=== PATIENT | male | born 1980 | race Caucasian/White ===

== ENCOUNTER 2017-12-13 10:31 | Inpatient (IN) | payer OTHER ==
[~2017-12-13] VITALS: Ht 170.2 cm; Wt 78.1 kg
--- NOTE | 2017-12-13 11:22 | PD ---
Physical Exam Date Seen by Provider: December 13, 2017 Time Seen by Provider: 11:19 Narrative 37-year-old male previously seen at [facility], and medically cleared for psychiatric evaluation under the [place] act. He is seen in the room complaining of rash which is not apparent on exam. He has no other medical complaints. He is felt to be psychotic. He is a poor historian. He has no known drug allergies Data Data Orders Orders Diet Regular Basic (12/13/17 Lunch) [facility] Medical Record Reviewed: Yes Supervised Visit with ANAHI: Yes Narrative Course Patient is previously been medically screened for psychiatric evaluation. Patient transferred from [place] for psychiatric evaluation. No further testing is warranted. Patient is medically cleared for psychiatric evaluation Psych screen is ordered Condition: Stable Rosalio Carpenter December 13, 2017 11:22
[2017-12-13] MEDS ORDERED: ALUMINUM/MAGNESIUM/SIMETH 30 ML CUP PO PRN (13:30)
[2017-12-13] MEDS ORDERED: LORazepam 1 MG TAB PO PRN (13:30)
[2017-12-13] MEDS ORDERED: ACETAMINOPHEN 325 MG TAB PO PRN (13:30)
[2017-12-13] MEDS ORDERED: LORazepam 0.5 MG TAB PO PRN (13:30)
[2017-12-13] MEDS ORDERED: LORazepam 2 MG/ML VIAL IM PRN ×2 (13:30)
[2017-12-13] MEDS ORDERED: MAGNESIUM HYDROXIDE SUSP 30 ML CUP PO PRN (13:30)
--- NOTE | 2017-12-13 13:45 | HHI.HP ---
Provisional Diagnosis Admission Date [place] I. Unspecified psychosis, history of depression [place] II. Deferred [place] III. No significant medical history [place] IV. Poor social and family support [place] V. 40 Certification of Person's Competence To Provide Express and Informed Consent I have personally examined Anselmo Phillips , a person being served at [facility] [place] on, December 13, 2017 13:20. Express and informed consent means consent voluntarily given in writing, by a competent person, after sufficient explanation and disclosure of the subject matter involved to enable the person to make a knowing and willful decision without any element of force, fraud, deceit, duress, or other form of constraint or coercion. This person is 18 years of age or older, is not now known to be incompetent to consent to treatment with a guardian advocate, and does not have a health care surrogate or proxy currently making medical treatment decisions. I have found this person to be one of the following: [] Competent to provide express and informed consent, as defined above, for voluntary admission to this facility and is competent to provide express and informed consent for treatment. He/she has the consistent capacity to make well reasoned, willful, and knowing decisions concerning his or her medical or mental health treatment. The person fully and consistently understands the purpose of the admission for examination/placement and is fully capable of personally exercising all rights assured under [place] Incompetent to provide express and informed consent to voluntary admission, and this is incompetent to provide express and informed consent to treatment. The person must be transferred to involuntary status and a petition for a guardian advocate filed with the Circuit Court. [x] Refusing to provide express and informed consent to voluntary admission but is competent to provide express and informed consent for treatment. The person must be discharged or transferred to involuntary status. Form shall be completed within 24 hours of a person's arrival at the receiving facility and filed in the clinical record of each person: 1. Admitted on a voluntary basis 2. Permitted to provide express and informed consent to his/her own treatment 3. Allowed to transfer from involuntary to voluntary status 4. Prior to permitting a person to consent to his or her own treatment after having been previously found incompetent to consent to treatment. 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 Faxed medical record from [facility] reviewed. On psychiatric evaluation the patient is calm, cooperative. The patient reports that the reason he came for medical health in [facility] was because he was having "a lot of skin protuberances". As the patient is telling me his he started showing me the protuberant lesions in his hands, but his skin is fairly normal. He also states that he has several lesions of other nature in his body. For example, he says that his anus is changing in color, and as he is saying this he exposed himself to show his supposed discoloration. He also complained of rash and pruritus. He says that the reason he is having this problem is because "those people" in detention were putting poison in his food and water. 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 He says that the people from detention that are following him are "the sons of detention" and they are also watching him in the street, recording his movement with cameras, "and their plan is to kill me, but I am going to kill me before they find me". The patient seems to be quite distressed, but no agitated or aggressive. He reports upset mood due to his skin lesion and "people following me". He denies active suicidal ideation, denies suicidal plan, denies homicidal ideation, denies visual and auditory hallucinations. The patient is goal-directed, linear, but no major thought disorder is observed at this moment. No agitation, no aggressive behavior present. The patient is fully oriented 3, no filtration of consciousness, no attention deficit. He denies the use of alcohol and illegal drugs. Review of Systems Constitutional: DENIES: Diaphoretic episodes, Fatigue, Fever, Weight gain, Weight loss, Chills, Dizziness, Change in appetite, Night Sweats Endocrine: DENIES: Heat/cold intolerance, Polydipsia, Polyuria, Polyphagia Eyes: DENIES: Blurred vision, Diplopia, Eye inflammation, Eye pain, Vision loss , Photosensitivity, Double Vision Ears, nose, mouth, throat: DENIES: Tinnitus, Hearing loss, Vertigo, Nasal discharge, Oral lesions, Throat pain, Hoarseness, Ear Pain, Running Nose, Epistaxis, Sinus Pain, Toothache, Odynophagia Respiratory: DENIES: Apneas, Cough, Snoring, Wheezing, Hemoptysis, Sputum production, Shortness of breath Cardiovascular: DENIES: Chest pain, Palpitations, Syncope, Dyspnea on Exertion , PND, Lower Extremity Edema, Orthopnea, Claudication Gastrointestinal: DENIES: Abdominal pain, Black stools, Bloody stools, Constipation, Diarrhea, Nausea, Vomiting, Difficulty Swallowing, Anorexia Genitourinary: DENIES: Sexual dysfunction, Urinary frequency, Urinary incontinence, Urgency, Hematuria, Dysuria, Nocturia, Penile Discharge, Testicular Pain, Testicular Swelling Musculoskeletal: DENIES: Joint pain, Muscle aches, Stiffness, Joint Swelling, Back pain, Neck pain Integumentary: DENIES: Abnormal pigmentation, Nail changes, Pruritus, Rash Hematologic/lymphatic: DENIES: Bruising, Lymphadenopathy Immunologic/allergic: DENIES: Eczema, Urticaria Neurologic: DENIES: Abnormal gait, Headache, Localized weakness, Paresthesias, Seizures, Speech Problems, Tremor, Poor Balance Psychiatric: COMPLAINS OF: Mood changes, Depression, Suicidal Ideation, Delusions Past Psych History Violence risk - self (6 mos) Elevated Substance Abuse History Drugs/Alcohol past 12 months Patient denies the use of drugs or alcohol Past Family Social History Coded Allergies: No Known Allergies (Unverified , 12/13/17) Current Medications Medications (Trade) Dose Ordered Sig/Tiesha Route Start Time Stop Time Status Last Admin (Ativan) 1 mg Q6H PRN PO 12/13/17 13:30 UNV (Ativan Inj) 1 mg Q6H PRN IM 12/13/17 13:30 UNV (Ativan) 0.5 mg Q12H PRN PO 12/13/17 13:30 UNV (Ativan Inj) 0.5 mg Q12H PRN IM 12/13/17 13:30 UNV (Tylenol) 650 mg Q4H PRN PO 12/13/17 13:30 UNV (Milk Of Magnesia Liq) 30 ml DAILY PRN PO 12/13/17 13:30 UNV (Mag-Al Plus Susp Liq) 30 ml Q6H PRN PO 12/13/17 13:30 UNV (Habitrol 21 Mg Patch.24 Hr) 1 patch DAILY T-DERMAL 12/13/17 13:30 UNV Family Psych History Patient denies family psychiatric history Social History Patient was born and raised in [place], he lives in [place] in a hotel, recently released from detention, multiple incarcerations in the past, single, employed in construction Patient's Strengths (min. 2) Verbal communication Physical Exam No tremors, no EPS, no psychomotor retardation or agitation at the moment Mental Status Examination Appearance: Appropriate Consciousness: Alert Orientation: x4 Motor Activity: Normal gait Speech: Unremarkable Language: Adequate Fund of Knowledge: Adequate Attention and Concentration: Adequate Memory: Unremarkable Mood: Angry Affect: Irritable Thought Process & Associations: Goal directed, Linear Thought Content: Appropriate Hallucination Type: None Delusion Type: None, Bizarre, Paranoid, Somatic Suicidal Ideation: Yes Suicidal Plan: No Suicidal Intention: No Homicidal Ideation: No Homicidal Plan: No Homicidal Intention: No Insight: Poor Judgment: Poor Assessment & Plan Problem List: (1) Unspecified psychosis ICD Codes: F29 - Unspecified psychosis not due to a substance or known physiological condition Assessment & Plan: Psychiatric evaluation the patient presents cooperative, but irritable and quite upset. Patient has prominent somatic delusion, he thinks that he has deformation and protuberances in his skin, discoloration of his anus, pruritus and rash produced by poisoning of people in detention. He also has grandiose delusions thinking that he is a graduate civil engineer he can read "the mechanics of incarceration and poisoning", as well as persecutory delusions, and stating that "people from detention" are following him, recording him, and want to kill him. Due to these delusions the patient has a clear impairment in reality testing and as a result he also seems to be quite distressed, emotionally disturbed and anxious at the point that he has suicidal ideation to avoid "that they kill me". Patient's thought process seems to be quite linear and goal-directed, no disorganized or tangential. He denies perceptual disturbances such as visual and auditory hallucinations, but tactile hallucinations are possible. The patient is oriented 3, no gross cognitive impairment is present. Patient seems to have an elevated risk of danger to self and others due to level of psychosis. Patient reports a history of depression, but denies history of psychotic disorder in the past. The fact that the patient was released in Depakote 500 mg twice daily and Risperdal 1 mg twice daily from the recent hospitalization give me the idea that most probably the patient has been psychotic/manic, but he seems to have a very poor insight. I will restart this psychotropic regimen, Risperdal 1 mg twice daily, Depakote 500 mg twice daily. Will order Depakote levels. Patient will be transferred to [address] unit. Will consult psychiatry for second opinion. social worker health services intervention for psychosocial assessment, collateral information, individual and group therapies, also to coordinate safe discharge. Assessment & Plan Estimated LOS: Demetrius Akins MD December 13, 2017 13:45
[2017-12-13 14:20] VITALS: BP 102/58; PULSE 67; RESP 16; TEMP 97.1; O2SAT 100
[2017-12-13] MEDS: NICOTINE 21 MG/24 HR PATCH T-DERMAL SCH (15:00)
[2017-12-13] MEDS: risperiDONE 1 MG TAB PO SCH ×2 (15:04→20:25)
[2017-12-13] MEDS: DIVALPROEX SODIUM E.R. 500 MG TAB PO SCH (20:25)
[2017-12-13] MEDS: BENZTROPINE MESYLATE 1 MG TAB PO SCH (20:25)
[2017-12-13] MEDS: REMOVE OLD NICODERM (NICOTINE) PATCH T-DERMAL SCH (21:00)
[2017-12-14 05:58] VITALS: BP 91/52; PULSE 60; RESP 16; TEMP 97.9; O2SAT 100
[2017-12-14] MEDS: NICOTINE 21 MG/24 HR PATCH T-DERMAL SCH (09:00)
[2017-12-14 09:07] LABS: BICARBONATE 26.9 MEQ/L (21.0-32.0); BLOOD UREA NITROGEN 12 MG/DL (7-18); CALCIUM 8.6 MG/DL (8.5-10.1); CHLORIDE 104 MEQ/L (98-107); CREATININE 0.85 MG/DL (0.60-1.30); GLOMERULAR FILTRATION RATE 101 ML/MIN (>89); GLUCOSE,RANDOM 59 MG/DL (74-106); SODIUM (NA) 142 MEQ/L (136-145)
[2017-12-14 09:08] LABS: CHOLESTEROL 147 MG/DL (120-200); TRIGLYCERIDES 116 MG/DL (42-150)
[2017-12-14 09:10] LABS: CHOLESTEROL/ HDL RATIO 2.06 RATIO; HDL CHOLESTEROL 71.3 MG/DL (40.0-60.0); LDL CHOLESTEROL 53 MG/DL (0-99)
[2017-12-14] MEDS: DIVALPROEX SODIUM E.R. 500 MG TAB PO SCH ×2 (09:18→21:12)
[2017-12-14] MEDS: BENZTROPINE MESYLATE 1 MG TAB PO SCH ×2 (09:18→21:12)
[2017-12-14] MEDS: risperiDONE 1 MG TAB PO SCH ×2 (09:18→21:12)
--- NOTE | 2017-12-14 14:15 | PD.PSY.CON ---
Provisional Diagnosis Admission Date December 13, 2017 at 13:19 [place] I. Unspecified psychosis, history of depression [place] II. Deferred [place] III. No significant medical history [place] IV. Poor social and family support [place] V. 40 History of Present Illness Service Psychiatry Consult Requested By Dr. 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 Faxed medical record from [facility] reviewed. On psychiatric evaluation the patient is calm, cooperative. The patient reports that the reason he came for medical health in [facility] was because he was having "a lot of skin protuberances". As the patient is telling me his he started showing me the protuberant lesions in his hands, but his skin is fairly normal. He also states that he has several lesions of other nature in his body. For example, he says that his anus is changing in color, and as he is saying this he exposed himself to show his supposed discoloration. He also complained of rash and pruritus. He says that the reason he is having this problem is because "those people" in long term were putting poison in his food and water. 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 He says that the people from long term that are following him are "the sons of long term" and they are also watching him in the street, recording his movement with cameras, "and their plan is to kill me, but I am going to kill me before they find me". The patient seems to be quite distressed, but no agitated or aggressive. He reports upset mood due to his skin lesion and "people following me". He denies active suicidal ideation, denies suicidal plan, denies homicidal ideation, denies visual and auditory hallucinations. The patient is goal-directed, linear, but no major thought disorder is observed at this moment. No agitation, no aggressive behavior present. The patient is fully oriented 3, no filtration of consciousness, no attention deficit. He denies the use of alcohol and illegal drugs. 12/14/17 - Second opinion Patient is a 37-year-old Northern Irish man, single, employed, domiciled in [facility], with a past psychiatric history of depression, previous psychiatric admissions, no previous suicide attempt or self-injurious behavior, denies any history of substance use, no past medical history, previously incarcerated and currently endorsing having lesions in his hands and feet and his face related to belief that people in long term had poisoned his food and water which is because this. Patient also had endorsed having paranoid delusions of the same. Patient reports that he has been sleeping well, no problems with eating or drinking, no following bowel movement. Patient reports his mood has been "good" continues to endorse having auditory hallucinations but did not elaborate. Patient states that he has been having changes in his skin color for the past 2 days and had not noticed this prior this. Patient tolerated medications well, denying any suicide ideations. Past Family Social History Coded Allergies: No Known Allergies (Unverified , 12/13/17) Current Medications Medications (Trade) Dose Ordered Sig/Tiesha Route Start Time Stop Time Status Last Admin (Ativan) 1 mg Q6H PRN PO 12/13/17 13:30 (Ativan Inj) 1 mg Q6H PRN IM 12/13/17 13:30 (Tylenol) 650 mg Q4H PRN PO 12/13/17 13:30 (Milk Of Magnesia Liq) 30 ml DAILY PRN PO 12/13/17 13:30 (Mag-Al Plus Susp Liq) 30 ml Q6H PRN PO 12/13/17 13:30 (Habitrol 21 Mg Patch.24 Hr) 1 patch DAILY T-DERMAL 12/13/17 15:00 12/14/17 09:00 (Depakote Er) 500 mg BID PO 12/13/17 21:00 12/14/17 09:18 (risperDAL) 1 mg Q12HR PO 12/13/17 13:30 12/14/17 09:18 (Cogentin) 1 mg Q12HR PO 12/13/17 21:00 12/14/17 09:18 Miscellaneous Information 1 HS T-DERMAL 12/13/17 21:00 12/13/17 21:00 Patient's Strengths (min. 2) Verbal communication Physical Exam Vital Signs Vital Signs Date Time Temp Pulse Resp B/P (MAP) Pulse Ox O2 Delivery O2 Flow Rate FiO2 12/14/17 05:58 97.9 60 16 91/52 (65) 100 Lab Results Test 12/13/17 17:46 12/14/17 08:23 Valproic Acid (Depakene) Level LESS THAN 3 MCG/ML Blood Urea Nitrogen 12 MG/DL Creatinine 0.85 MG/DL Random Glucose 59 MG/DL Calcium Level 8.6 MG/DL Sodium Level 142 MEQ/L Potassium Level 4.1 MEQ/L Chloride Level 104 MEQ/L Carbon Dioxide Level 26.9 MEQ/L Anion Gap 11 MEQ/L Estimat Glomerular Filtration Rate 101 ML/MIN Triglycerides Level 116 MG/DL Cholesterol Level 147 MG/DL LDL Cholesterol 53 MG/DL HDL Cholesterol 71.3 MG/DL Cholesterol/HDL Ratio 2.06 RATIO Mental Status Examination Appearance: Appropriate Consciousness: Alert Orientation: x4 Motor Activity: Normal gait Speech: Unremarkable Language: Adequate Fund of Knowledge: Adequate Attention and Concentration: Adequate Memory: Unremarkable Mood: Anxious Affect: Blunt Thought Process & Associations: Goal directed, Linear Thought Content: Delusional Hallucination Type: None Delusion Type: None, Bizarre, Paranoid, Somatic Suicidal Ideation: Yes (Denies at this time) Suicidal Plan: No Suicidal Intention: No Homicidal Ideation: No Homicidal Plan: No Homicidal Intention: No Insight: Poor Judgment: Poor Assessment & Plan Problem List: (1) Unspecified psychosis ICD Codes: F29 - Unspecified psychosis not due to a substance or known physiological condition Assessment & Plan I have seen and examined this patient, reviewed the documentation, discussed personally with Dr. Blackwood, and I agree and concur with his assessment and plan. Consult appreciated. Patient to continue risperidone 1 mg p.o. twice daily along with Depakote 500 p.o. twice daily. We will request consult with hospitalist for evaluation of patient's report of rash and skin discoloration. Continue to monitor mood and behavior. Discharge planning in progress. Discharge Planning Patient return back to his residence upon psychiatric stabilization. Marito Francois MD December 14, 2017 14:15
[2017-12-14 14:58] LABS: HEMOGLOBIN A1C 4.4 % (4.3-6.0)
--- NOTE | 2017-12-14 15:15 | PD.CONS ---
HPI Service [facility] Hospitalists Consult Requested By Dr. Francois Reason for Consult Complains of skin rash/discoloration, left foot lesion. Primary Care Physician Unknown Diagnoses: History of Present Illness This is a 37-year-old male who was recently released after 7 years of incarceration, he presented to [facility] emergency department on 12/12 proximately a week after being released with reports that someone was poisoning him. Medical records reviewed, patient was also noted to be anxious, psychotic, and having hallucinations. He reported irritation of bilateral lower extremities due to poisoning. Vital signs as well as labs during his ED visit reviewed, stable with no acute abnormalities. ED physician does not make any mention of any type of skin abnormality in his assessment during that evaluation. He was provided with IV Ativan, Benadryl, and IM Haldol. Cleared medically and Palencia acted due to acute psychosis per he was transferred to [place] inpatient psychiatry unit for further evaluation. [facility] has been consulted to assess reports of skin discoloration and lesions. Patient is seen and examined in room with tach present, conversation is carried out in Turkish which patient prefers. He denies any past medical history and his only surgical history is right forearm due to fracture. He reports that his body is experiencing a reaction to the toxins in the food, he reports that food had fecal excrements which changed his skin color. He also states that his skin is discolored due to the toxins that his body is trying to get rid of. He reports that the discoloration and irritation is in bilateral hands but at times will be on his torso. He is also experiencing discoloration around his anus. He denies any new changes in lotions, shampoos, or body washes. He states that he will take showers at [employer] daily prior to coming to the hospital. He also states that he has been walking on the street since his release. Complains of left plantar foot wound, he also believes that this may have something to do with the toxins in his body. He denies any fevers, chills, nausea, vomiting, diarrhea, headaches, dizziness, shortness of breath, cough or chest pain. He is voiding without any dysuria, moving his bowels regularly. Review of Systems Except as stated in HPI: all other systems reviewed are Neg Past Family Social History Allergies: Coded Allergies: No Known Allergies (Unverified , 12/13/17) Past Medical History Denies past medical history Past Surgical History Right forearm fracture resulting in repair with plates and screws Active Ordered Medications Current Medications Medications (Trade) Dose Ordered Sig/Tiesha Route Start Time Stop Time Status Last Admin (Ativan) 1 mg Q6H PRN PO 12/13/17 13:30 (Ativan Inj) 1 mg Q6H PRN IM 12/13/17 13:30 (Tylenol) 650 mg Q4H PRN PO 12/13/17 13:30 (Milk Of Magnesia Liq) 30 ml DAILY PRN PO 12/13/17 13:30 (Mag-Al Plus Susp Liq) 30 ml Q6H PRN PO 12/13/17 13:30 (Habitrol 21 Mg Patch.24 Hr) 1 patch DAILY T-DERMAL 12/13/17 15:00 12/14/17 09:00 (Depakote Er) 500 mg BID PO 12/13/17 21:00 12/14/17 09:18 (risperDAL) 1 mg Q12HR PO 12/13/17 13:30 12/14/17 09:18 (Cogentin) 1 mg Q12HR PO 12/13/17 21:00 12/14/17 09:18 Miscellaneous Information 1 HS T-DERMAL 12/13/17 21:00 12/13/17 21:00 Family History Mother: Renal disease on hemodialysis Social History Tobacco: Smokes about 1 pack per day Denies alcohol or illicit drug use. Physical Exam Vital Signs Vital Signs Date Time Temp Pulse Resp B/P (MAP) Pulse Ox O2 Delivery O2 Flow Rate FiO2 12/14/17 05:58 97.9 60 16 91/52 (65) 100 Physical Exam GENERAL: This is a well-nourished, well-developed patient, in no apparent distress. SKIN: No rashes or ecchymoses. Cool and dry. No open wounds noted on bilateral arms or legs. Nasal bridge with skin peeling noted. Rivera lines around neck. HEAD: Atraumatic. Normocephalic. EYES: Pupils equal round and reactive. No scleral icterus. No injection or drainage. ENT: Nose without bleeding, purulent drainage. Airway patent. NECK: Trachea midline. No JVD or lymphadenopathy. CARDIOVASCULAR: Regular rate and rhythm without murmurs, gallops, or rubs. RESPIRATORY: Clear to auscultation. Breath sounds equal bilaterally. No wheezes , rales, or rhonchi. GASTROINTESTINAL: Abdomen soft, non-tender, nondistended. No guarding. Discoloration noted around anus particularly on areas which makes skin to skin contact. MUSCULOSKELETAL: Extremities without clubbing, cyanosis, or edema. No joint tenderness, effusion, or edema noted. Left foot plantar aspect with stage II ulcer, about 2cm in diameter with no visible drainage, swelling, or erythema. NEUROLOGICAL: Awake and alert. Cranial nerves II through XII grossly intact. Motor and sensory grossly within normal limits. Five out of 5 muscle strength in all muscle groups. Normal speech. Laboratory Laboratory Tests Test 12/13/17 17:46 12/14/17 08:23 Valproic Acid (Depakene) Level LESS THAN 3 Blood Urea Nitrogen 12 Creatinine 0.85 Random Glucose 59 Calcium Level 8.6 Sodium Level 142 Potassium Level 4.1 Chloride Level 104 Carbon Dioxide Level 26.9 Anion Gap 11 Estimat Glomerular Filtration Rate 101 Triglycerides Level 116 Cholesterol Level 147 LDL Cholesterol 53 HDL Cholesterol 71.3 Cholesterol/HDL Ratio 2.06 Result Diagram: 12/14/17 0823 Assessment and Plan Assessment and Plan 37-year-old male recently released from 7 year [facility] incarceration who presented to [facility] with complaints of skin irritation, discoloration , and rash which he attributed to poisoning. [facility] has been consulted to evaluate patient for skin rash, discoloration, left foot lesion. Psychosis -Treatment per primary, greatly appreciated Rash/skin discoloration -No skin rash or skin discoloration noted on arms, legs, torso, or face. Rivera lines noted, suspect that skin color changes are secondary to patient spending more time in the sun. This could also possibly be related to his psychosis and believes that he is being poisoned. -Nasal bridge noted with peeling skin, discussed with patient -Anal discoloration, this discoloration on dark skin is most consistent with fungal infection, patient endorses pruritus -We will treat with nystatin cream, discussed with patient. Left foot plantar aspect stage II ulcer -Suspect this is secondary to patient walking on the street with poor shoes -Wound is small and does not look infected, patient is not a diabetic hemoglobin A1c 4.4 -Clean with normal saline and apply bordered gauze daily. DVT prophylaxis-ambulation Discussed with patient and nurse. Thank you for this consultation, [facility] will sign off, please reconsult if needed. Prasanna Ly December 14, 2017 15:15
[2017-12-14 16:43] VITALS: BP 106/59; PULSE 66; RESP 17; TEMP 97.3; O2SAT 99
[2017-12-14] MEDS: REMOVE OLD NICODERM (NICOTINE) PATCH T-DERMAL SCH (21:00)
[2017-12-14] MEDS: NYSTATIN 100,000 UNIT/GM CREAM 15 GM TOPICAL SCH (21:12)
[2017-12-15 06:25] VITALS: BP 99/51; PULSE 80; RESP 17; TEMP 98.6; O2SAT 99
[2017-12-15] MEDS: BENZTROPINE MESYLATE 1 MG TAB PO SCH ×2 (08:58→21:22)
[2017-12-15] MEDS: risperiDONE 1 MG TAB PO SCH ×2 (08:59→21:22)
[2017-12-15] MEDS: NYSTATIN 100,000 UNIT/GM CREAM 15 GM TOPICAL SCH ×2 (08:59→21:22)
[2017-12-15] MEDS: NICOTINE 21 MG/24 HR PATCH T-DERMAL SCH (08:59)
[2017-12-15] MEDS: DIVALPROEX SODIUM E.R. 500 MG TAB PO SCH ×2 (08:59→21:00)
--- NOTE | 2017-12-15 15:23 | HHI.PYPN ---
Subjective Remarks Patient was seen and case discussed with nursing. Patient is anxious about losing his job. He says he wants to go back to work so he can support himself. Continues to think that he was poisoned before admission. He does not believe that the food is poisoned here. His behaving well on the unit. Insight is poor. Denies suicidal or homicidal ideation intent or plan Mental Status Examination Appearance: Appropriate Consciousness: Alert Orientation: x4 Motor Activity: Normal gait Speech: Unremarkable Language: Adequate Fund of Knowledge: Adequate Attention and Concentration: Adequate Memory: Unremarkable Mood: Anxious Affect: Blunt Thought Process & Associations: Goal directed, Linear Thought Content: Delusional Hallucination Type: None Delusion Type: None, Bizarre, Paranoid, Somatic Suicidal Ideation: Yes (Denies at this time) Suicidal Plan: No Suicidal Intention: No Homicidal Ideation: No Homicidal Plan: No Homicidal Intention: No Insight: Poor Judgment: Poor Results Vitals/IOs Vital Signs Date Time Temp Pulse Resp B/P (MAP) Pulse Ox O2 Delivery O2 Flow Rate FiO2 12/15/17 06:25 98.6 80 17 99/51 (67) 99 Assessment & Plan Problem List: (1) Unspecified psychosis ICD Codes: F29 - Unspecified psychosis not due to a substance or known physiological condition Assessment & Plan Continue current treatment plan Justification for Cont. Inpt. Patient would decompensate in a less restrictive setting Spencer Puckett DO December 15, 2017 15:23
[2017-12-15 18:17] VITALS: BP 111/60; PULSE 73; RESP 18; TEMP 98.3; O2SAT 100
[2017-12-15] MEDS: REMOVE OLD NICODERM (NICOTINE) PATCH T-DERMAL SCH (21:00)
[2017-12-16 06:44] VITALS: BP 108/75; PULSE 76; RESP 16; TEMP 98.9; O2SAT 100
[2017-12-16] MEDS: NICOTINE 21 MG/24 HR PATCH T-DERMAL SCH (08:58)
[2017-12-16] MEDS: DIVALPROEX SODIUM E.R. 500 MG TAB PO SCH ×3 (08:58→21:24)
[2017-12-16] MEDS: risperiDONE 1 MG TAB PO SCH ×2 (08:58→21:03)
[2017-12-16] MEDS: BENZTROPINE MESYLATE 1 MG TAB PO SCH ×2 (08:58→21:03)
[2017-12-16] MEDS: NYSTATIN 100,000 UNIT/GM CREAM 15 GM TOPICAL SCH ×2 (09:00→21:02)
--- NOTE | 2017-12-16 14:17 | HHI.PYPN ---
Subjective Remarks Patient was seen and case discussed with nursing. Patient is cooperative with exam. He no longer believes his food is poisoned. 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 He social on the unit, spending his time in the dayroom and watching TV. Compliant with medications. No outbursts Mental Status Examination Appearance: Appropriate Consciousness: Alert Orientation: x4 Motor Activity: Normal gait Speech: Unremarkable Language: Adequate Fund of Knowledge: Adequate Attention and Concentration: Adequate Memory: Unremarkable Mood: Anxious Affect: Blunt Thought Process & Associations: Goal directed, Linear Thought Content: Delusional Hallucination Type: None Delusion Type: None Suicidal Ideation: No Suicidal Plan: No Suicidal Intention: No Homicidal Ideation: No Homicidal Plan: No Homicidal Intention: No Insight: Poor Judgment: Poor Results Vitals/IOs Vital Signs Date Time Temp Pulse Resp B/P (MAP) Pulse Ox O2 Delivery O2 Flow Rate FiO2 12/16/17 06:44 98.9 76 16 108/75 (86) 100 Assessment & Plan Problem List: (1) Unspecified psychosis ICD Codes: F29 - Unspecified psychosis not due to a substance or known physiological condition Assessment & Plan Continue current treatment plan Justification for Cont. Inpt. Patient would decompensate in a less restrictive setting Spencer Puckett DO December 16, 2017 14:17
[2017-12-16 17:13] VITALS: BP 111/71; PULSE 73; RESP 16; TEMP 98.5; O2SAT 99
[2017-12-16] MEDS: REMOVE OLD NICODERM (NICOTINE) PATCH T-DERMAL SCH (21:00)
[2017-12-17 07:13] VITALS: BP 99/57; PULSE 85; RESP 16; TEMP 98.7; O2SAT 99
[2017-12-17] MEDS: NICOTINE 21 MG/24 HR PATCH T-DERMAL SCH (09:00)
[2017-12-17] MEDS: NYSTATIN 100,000 UNIT/GM CREAM 15 GM TOPICAL SCH (09:43)
[2017-12-17] MEDS: DIVALPROEX SODIUM E.R. 500 MG TAB PO SCH (09:43)
[2017-12-17] MEDS: BENZTROPINE MESYLATE 1 MG TAB PO SCH (09:43)
[2017-12-17] MEDS: risperiDONE 1 MG TAB PO SCH (09:43)
[2017-12-17] MEDS ORDERED: Benztropine PO (12:10)
[2017-12-17] MEDS ORDERED: NYST15T TOPICAL (12:10)
[2017-12-17] MEDS ORDERED: DEPA500T3 PO (12:10)
[2017-12-17] MEDS ORDERED: RISP1 PO (12:10)
--- NOTE | 2017-12-17 12:11 | HHI.DS ---
Psychiatry Discharge Summary Inpatient Psychiatric care?: Yes Advance Directive: No Reason Not Provided: refused Mental Health AdvanceDirective: No Health Care Proxy: No Admission Admission Date December 13, 2017 at 13:19 Admission Diagnosis: (1) Unspecified psychosis ICD Code: F29 - Unspecified psychosis not due to a substance or known physiological condition Brief History The patient is a 37-year-old Faroese bilingual man, first time in [facility], who is domiciled in a motel in [place], single, employed in construction, recently released from [facility] after 7 years incarceration, with self reported psychiatric history of depression, he denies the use of illegal drugs or alcohol, no prior suicidal attempt, for previous psychiatric hospitalizations, he was just released from a psychiatric hospitalization in [place] at [facility], about a week ago, he is on Risperdal 1 mg twice daily, Depakote 500 mg twice daily, no significant medical history, was transferred to [place] from a [facility], and medically cleared for psychiatric evaluation under the Palencia act due to psychotic behavior. Faxed medical record from [facility] reviewed. On psychiatric evaluation the patient is calm, cooperative. The patient reports that the reason he came for medical health in [facility] was because he was having "a lot of skin protuberances". As the patient is telling me his he started showing me the protuberant lesions in his hands, but his skin is fairly normal. He also states that he has several lesions of other nature in his body. For example, he says that his anus is changing in color, and as he is saying this he exposed himself to show his supposed discoloration. He also complained of rash and pruritus. He says that the reason he is having this problem is because "those people" in al[place] were putting poison in his food and water. 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 He says that the people from alf that are following him are "the sons of alf" and they are also watching him in the street, recording his movement with cameras, "and their plan is to kill me, but I am going to kill me before they find me". The patient seems to be quite distressed, but no agitated or aggressive. He reports upset mood due to his skin lesion and "people following me". He denies active suicidal ideation, denies suicidal plan, denies homicidal ideation, denies visual and auditory hallucinations. The patient is goal-directed, linear, but no major thought disorder is observed at this moment. No agitation, no aggressive behavior present. The patient is fully oriented 3, no filtration of consciousness, no attention deficit. He denies the use of alcohol and illegal drugs. 12/14/17 - Second opinion Patient is a 37-year-old Faroese man, single, employed, domiciled in [facility] [place], with a past psychiatric history of depression, previous psychiatric admissions, no previous suicide attempt or self-injurious behavior, denies any history of substance use, no past medical history, previously incarcerated and currently endorsing having lesions in his hands and feet and his face related to belief that people in alf had poisoned his food and water which is because this. Patient also had endorsed having paranoid delusions of the same. Patient reports that he has been sleeping well, no problems with eating or drinking, no following bowel movement. Patient reports his mood has been "good" continues to endorse having auditory hallucinations but did not elaborate. Patient states that he has been having changes in his skin color for the past 2 days and had not noticed this prior this. Patient tolerated medications well, denying any suicide ideations. Tobacco Use In Past 30 Days: 5 or More Cigarettes/Day Alcohol Use: Never Hospital Course Patient is a 37-year-old Faroese man, single, employed, domiciled in [facility] [place], with a past psychiatric history of depression, previous psychiatric admissions, no previous suicide attempt or self-injurious behavior, denies any history of substance use, no past medical history, previously incarcerated and currently endorsing having lesions in his hands and feet and his face related to belief that people in alf had poisoned his food and water which he was admitted to the inpatient psychiatry unit patient for further evaluation and management. Patient was started on Depakote 500 mg p.o. twice daily and risperidone 1 mg p.o. twice daily along with benztropine 1 mg p.o. twice daily which he tolerated well with no noted side effects. Patient continued to endorse delusions of parasitic infections initially but throughout admission and treatment no longer endorsed this. Patient also denying any suicidal ideations during hospitalization and began to have improvement in mood achieving stabilization. Patient was adherent to medication regimen and recommendations as per primary medical team was noted with participation with staff and in groups and activities. Upon discharge patient stated feeling good, stated feeling okay with returning back to his home; noted to be calm and cooperative with staff. He agreed to continuing medical recommendations, treatment and cooperate for continuity of care. Patient; denies SI, HI, AVH or delusions. Supportive psychotherapy provided. Suicide and violence risk assessment on day of discharge both suggest lower imminent risk, and the patient's level of function is adequate for planned level of outpatient care. Patient has maximized benefit from this inpatient psychiatric hospital stay and to return to psychiatric emergency room for any concerning psychiatric symptoms. Patient agrees with plan. Results Blood Pressure 99 / 57 Vital Signs Date Time Temp Pulse Resp B/P (MAP) Pulse Ox O2 Delivery O2 Flow Rate FiO2 12/17/17 07:13 98.7 85 16 99/57 (71) 99 Laboratory Results Test 12/13/17 17:46 12/14/17 08:23 Valproic Acid (Depakene) Level LESS THAN 3 MCG/ML Cholesterol Level 147 MG/DL (120-200) HDL Cholesterol 71.3 MG/DL (40.0-60.0) Hemoglobin A1c 4.4 % (4.3-6.0) LDL Cholesterol 53 MG/DL (0-99) Triglycerides Level 116 MG/DL (42-150) Summary of Procedures None Pending results at discharge: No Medications # of Antipsychotic meds at D/C: 1 Approp Antipsych med options 1 - Minimum of three failed multiple trials of monotherapy. 2 - Documented plan to taper to monotherapy due to previous use of multiple meds OR cross-taper in progress at D/C. 3 - Documentation of augmentation of Clozapine. 4 - Justification other than those listed in allowable values 1-3, document here : Discharge Discharge Date: December 17, 2017 Discharge Diagnosis: (1) Unspecified psychosis ICD Code: F29 - Unspecified psychosis not due to a substance or known physiological condition Pt Condition on Discharge: Stable Discharge Disposition: Discharge Home Discharge Instructions Diet Instructions: As Tolerated, No Restrictions Activities you can perform: Regular-No Restrictions Discharge Time > 30 minutes Mental Status Examination Appearance: Appropriate Consciousness: Alert Orientation: x4 Motor Activity: Normal gait Speech: Unremarkable Language: Adequate Fund of Knowledge: Adequate Attention and Concentration: Adequate Memory: Unremarkable Mood: Appropriate Affect: Appropriate Thought Process & Associations: Intact, Goal directed, Linear Thought Content: Appropriate Hallucination Type: None Delusion Type: None Suicidal Ideation: No Suicidal Plan: No Suicidal Intention: No Homicidal Ideation: No Homicidal Plan: No Homicidal Intention: No Insight: Fair Judgment: Impulsive Discharge/Advance Care Plan Health Problems: (1) Unspecified psychosis Goals to promote your health * To prevent worsening of your condition and complications * To maintain your health at the optimal level Directions to meet your goals Take your medications as prescribed Follow your dietary instruction Follow activity as directed Keep your appointments as scheduled Take your immunizations and boosters as scheduled If your symptoms worsen call your PCP, if no PCP go to Urgent Care Center or Emergency Room For 05/03 questions related to your inpatient stay or results of tests pending at discharge, please contact Dr. Marito Francois at Smoking is Dangerous to Your Health. Avoid second hand smoking Marito Francois MD December 17, 2017 12:11
--- NOTE | 2017-12-17 16:06 | PD.TTN ---
Patient Problems 1. Discharge planning 2. Medication compliance 3. Knowledge deficit 4. Lack of coping skills Progress Toward Goals Provider Present: Dr. Ksenia Francois Provider Input: Dr. Francois had his treatment team meeting to discuss patient's discharge, medication, and treatment. Patient is doing better and will be discharged today. Nurse(s) Input: Patient is doing better, denies suicidal and homicidal ideation. Patient is medication compliant Psychiatric Counselors Present: Le Perez [facility] Psych Therapist Input: Patient is doing better. Patient denies suicidal and homicidal ideation. Patient is medication compliant. Patient is being discharged today. Group Spec/RT/OT/CASTRO Present: Rosalio Olvera OT Group Spec/RT/OT/CASTRO Input: Patient does participate in groups. Le Perez [facility] December 17, 2017 16:06
== END 2017-12-17 15:30 | disposition home or self-care (01) | DRG 885 ==
LOC: NEPJ 10:31 → NEDA 13:19 → H270 14:20
PROVIDERS: ADMIT Student in an Organized Health Care Education/Training Program; ATTEND Student in an Organized Health Care Education/Training Program
DX: F29 Unspecified psychosis not due to a substance or known physiological condition (principal); R45.851 Suicidal ideations; L97.529 Non-pressure chronic ulcer of other part of left foot with unspecified severity; F22 Delusional disorders; F32.9 Major depressive disorder, single episode, unspecified; F17.210 Nicotine dependence, cigarettes, uncomplicated; L29.9 Pruritus, unspecified
CPT/HCPCS: 80048; 80061; 80164; 83036; 99285